=== PATIENT | female | born 2000 | race African-American/Black ===

== ENCOUNTER 2024-12-01 09:19 | Emergency (ER) | payer OTHER, SELFPAY ==
--- NOTE | ~2024-12-01 | XR_ITS ---
EXAMINATION: XR ankle RT min 3V DATE: 12/01/2024 09:48 INDICATION: Lateral malleolar pain at the right ankle TECHNIQUE: Anteroposterior, oblique, mortise, and lateral views of the right ankle were obtained. COMPARISON: None. FINDINGS: Bone alignment is normal. No fracture. Joint spaces are normal. There are couple corticated heterotop ic ossicles medial to the tip the lateral malleolus most likely sequela of chronic anterior talofibul ar ligament sprain. Soft tissue swelling about the lateral malleolus. No definitive ankle joint effus ion. IMPRESSION: 1. Possible recurrent lateral ankle sprain with soft tissue swelling over the lateral malleolus and h eterotopic ossicle suggesting sequela of prior sprain. No acute osseous abnormality. Reviewed, dictated and finalized at location A. IMPRESSION: 1. Possible recurrent lateral ankle sprain with soft tissue swelling over the l ateral malleolus and heterotopic ossicle suggesting sequela of prior sprain. No acute osseous abnormality.
[2024-12-01 09:23] VITALS: BP 122/79; PULSE 76; RESP 20; TEMP 36.7; O2SAT 100
--- NOTE | 2024-12-01 09:42 | ED.LOWEXIN ---
HPI - Extremity Injury (Lower) General Chief Complaint: Extremity Injury, Lower Stated Complaint: R ankle injury at work Time Seen by Provider: 12/01/24 09:26 History of Present Illness HPI Narrative: Patient is a 24-year-old female who presents ER with right ankle pain. 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 She did not fall or strike her head. Has lateral malleolar pain. Mild swelling. She is able to bear weight. No numbness or tingling. Related Data Allergies Allergy/AdvReac Type Severity Reaction Status Date / Time No Known Allergies Allergy Verified 12/01/24 09:26 Review of Systems Constitutional: Constitutional: Reports no additional constitutional complaints Musculoskeletal: Musculoskeletal: Reports no additional musculoskeletal complaints Neurologic: Reports system reviewed and no additional complaints, except as documented PMFSH Past Medical History Medical History (Updated 12/01/24 @ 10:10 by Andres Fernandez MD) Healthy female adult Surgical History Surgical History (Updated 12/01/24 @ 09:43 by Andres Fernandez MD) No history of previous surgery Exam Narrative: GENERAL: Well-appearing, well-nourished, and in no acute distress. HEAD: Normocephalic, atraumatic. HEART: Regular rate and rhythm. Normal peripheral pulses. EXTREMITIES: Normal range of motion. No edema. Tender palpation over the lateral malleolus of the right ankle with minimal swelling. SKIN: Warm, dry, no rash. NEURO: Alert and oriented x3. Course Course Emergency Course: Informed of results. D/c home. Vital Signs Vital signs: Vital Signs Temperature 98.1 F 12/01/24 09:23 Pulse Rate 76 12/01/24 09:23 Respiratory Rate 20 12/01/24 09:23 Blood Pressure 122/79 12/01/24 09:23 Pulse Oximetry 100 12/01/24 09:23 Oxygen Delivery Room Air 12/01/24 09:23 Temperature 98.1 F 12/01/24 09:23 Pulse Rate 76 12/01/24 09:23 Respiratory Rate 20 12/01/24 09:23 Blood Pressure 122/79 12/01/24 09:23 Pulse Oximetry 100 12/01/24 09:23 Oxygen Delivery Room Air 12/01/24 09:23 MDM - Extremity Injury (Lower) Imaging Data Radiologist's impression: ITS Impressions Ankle X-Ray 12/01/24 10:00 IMPRESSION: 1. Possible recurrent lateral ankle sprain with soft tissue swelling over the lateral malleolus and heterotopic ossicle suggesting sequela of prior sprain. No acute osseous abnormality. Discharge Plan Discharge Clinical Impression: Ankle sprain and strain Patient Disposition: Home Condition: Stable Instructions: Ankle Sprain (ED), P.R.I.C.E. Treatment (ED) Additional Instructions: Return to the ER if you have fever over 101F, you suffer new injury, or you have additional concerns. Patient Language: Belgian Prescriptions: New naproxen 375 mg tablet 375 mg PO BID Qty: 14 0RF Follow-up/Referrals: Fransisca,Magaly Kemp APRN [Primary Care Provider] - 1 Week
== END 2024-12-01 10:24 | disposition home or self-care (01) ==
PROVIDERS: Emergency Provider Emergency Medicine; PCP Nurse Practitioner Family
DX: S93.401A Sprain of unspecified ligament of right ankle, initial encounter (principal); S96.911A Strain of unspecified muscle and tendon at ankle and foot level, right foot, initial encounter; X50.9XXA Other and unspecified overexertion or strenuous movements or postures, initial encounter
CPT/HCPCS: 73610; 99283

== ENCOUNTER 2024-12-31 21:58 | Emergency (ER) | payer MEDICAID, SELFPAY ==
--- NOTE | ~2024-12-31 | US_ITS ---
EXAM: PELVIC ULTRASOUND HISTORY: pelvic pain, possible misplaced IUD COMPARISON: None. FINDINGS: UTERUS: 9.7 x 4.1 x 4.5 cm. The uterus is retroverted and retroflexed. Intrauterine device centrally located within the endometrial canal, in good position. RIGHT OVARY: The right ovary is unremarkable in echogenicity and size measuring 2.5 x 2.0 x 2.5 cm. Dopplerable flow is identified. LEFT OVARY: The left ovary is unremarkable in echogenicity and size measuring 2.8 x 1.7 x 2.7 cm Dopplerable flow is identified. Trace free fluid is identified within the pelvis. IMPRESSION: Intrauterine device in good position, as detailed above Reviewed, dictated and finalized at location A.
[2024-12-31 22:00] VITALS: BP 131/71; PULSE 98; RESP 17; TEMP 36.7; O2SAT 100
[2024-12-31 23:12] LABS: BEDSIDEPREGUCG Negative (Negative)
[2024-12-31 23:22] LABS: Add Urine Microscopic? YES; Appearance Urine Clear (Clear); Glucose Urine UA Negative (Negative); Leukocyte Esterase Ur 1+ LEU/UL (Negative); Nitrate Urine Negative (Negative); Non Pathogenic Casts 0-2; Specific Grav Ur 1.023 (1.001-1.035)
--- NOTE | 2025-01-01 00:59 | ED.FEMALEGU ---
HPI - Female Genitourinary General Chief complaint: [employer]IENT [employer]ICE [employer]OCIATE Stated complaint: abd pain, thinks IUD is out of place Time Seen by Provider: 12/31/24 23:23 History of Present Illness HPI Narrative: 24-year-old female otherwise young and healthy presenting to the emergency depart with some deep pelvic pain after having intercourse 4 days ago. She thinks she may have displaced heard IUD. No other traumatic injuries. No bleeding or vaginal discharge. No urinary complaints. No systemic features or symptoms. Was otherwise in her normal state of health. Has not taken anything for symptom control at home. Related Data Allergies Allergy/AdvReac Type Severity Reaction Status Date / Time No Known Allergies Allergy Verified 12/31/24 21:59 Review of Systems Review of Systems: As reviewed above in HPI [facility] Past Medical History Medical History Healthy female adult Surgical History Surgical History No history of previous surgery Exam Narrative: GENERAL: [Well-appearing, well-nourished, and in no acute distress.] HEAD: [Normocephalic, atraumatic.] EYES: [PERRLA and EOMI.] ENT: Nares clear, no rhinorrhea or epistaxis. Mucous membranes moist. NECK: Supple. CHEST: No labored breathing, symmetric chest rise ABDOMEN: [Soft, nondistended], [nontender], [No rigidity or guarding] EXTREMITIES: Normal range of motion. [No edema.] SKIN: Warm, dry, no rash. NEURO: [No focal deficits]. Alert and oriented [x3.] PSYCH: [Normal mood and affect.] Course Vital Signs Vital signs: Vital Signs Temperature 36.7 C 12/31/24 22:00 Pulse Rate 98 12/31/24 22:00 Respiratory Rate 17 12/31/24 22:00 Blood Pressure 131/71 12/31/24 22:00 Pulse Oximetry 100 12/31/24 22:00 Oxygen Delivery Room Air 12/31/24 22:00 Temperature 36.7 C 12/31/24 22:00 Pulse Rate 98 12/31/24 22:00 Respiratory Rate 17 12/31/24 22:00 Blood Pressure 131/71 12/31/24 22:00 Pulse Oximetry 100 12/31/24 22:00 Oxygen Delivery Room Air 12/31/24 22:00 MDM - Female Genitourinary MDM Narrative Medical decision making narrative: 24-year-old female otherwise young and healthy presenting to the emergency depart with some deep pelvic pain after having intercourse 4 days ago. She thinks she may have displaced heard IUD. No other traumatic injuries. No bleeding or vaginal discharge. No urinary complaints. No systemic features or symptoms. Was otherwise in her normal state of health. Has not taken anything for symptom control at home. Ultrasound was ordered to evaluate for any IUD malposition or the other intrauterine/pelvic findings but could be component of some direct traumatic injury from the intercourse. Ultrasound is unremarkable with normal position of IUD. Patient given ibuprofen and safe for discharge with PCP follow-up. Medical Records Attestation: I reviewed the patient's medical records. Lab Data Attestation: I reviewed the patient's lab results. Labs: Lab Results 12/31/24 12/31/24 Range/Units 23:06 23:10 Urine Color Yellow (Yellow) Urine Appearance Clear (Clear) Urine pH 5.5 (5.0-9.0) Ur Specific [place] 1.023 (1.001-1.035) Urine Protein Negative (Negative) mg/dL Urine Glucose (UA) Negative (Negative) mg/dL Urine Ketones 1+ H (Negative) mg/dL Ur Blood (Man) Negative (Negative) Urine Nitrate Negative (Negative) Urine Bilirubin Negative (Negative) Urine Urobilinogen 1.0 (<2.0) mg/dL Leukocyte Esterase Rfl 1+ H (Negative) YOLI/UL Urine RBC 0-2 (0-2) /hpf Urine WBC 6-10 H (0-3) /hpf Ur Squamous Epith Cells Not Reportable Urine Bacteria Trace /hpf Urine Casts 0-2 POC Urine HCG, Qual Negative (Negative) Imaging Data Attestation: I personally reviewed and interpreted this imaging study as follows: My impression: Impressions Transvaginal US 12/31/24 23:52 IMPRESSION: Intrauterine device in good position, as detailed above Discharge Plan Discharge Clinical Impression: Pelvic pain Patient Disposition: Home Condition: Stable Instructions: Antibiotic Form Additional Instructions: Ultrasound is normal without any findings of acute injury. IUD is in place. Likely related to the recent intercourse but no signs of any acute traumatic findings. Ibuprofen up to 800 mg up to 3 times daily for pain control. Return to the ER with any emergent concerns otherwise follow-up with your doctor. Patient Language: Icelandic Prescriptions: No Action naproxen 375 mg tablet 375 mg PO BID Qty: 14 0RF Follow-up/Referrals: Fransisca,Magaly Kemp APRN [Primary Care Provider] - Time of Disposition: 00:59
[2025-01-01] MEDS: IBUPROFEN 400 MG TABLET 800 MG PO (01:09)
== END 2025-01-01 01:13 | disposition home or self-care (01) ==
PROVIDERS: Emergency Provider Student in an Organized Health Care Education/Training Program; PCP Nurse Practitioner Family
DX: R10.2 Pelvic and perineal pain (principal); Z97.5 Presence of (intrauterine) contraceptive device
CPT/HCPCS: 76830; 81001; 81025; 99284; A9270

== ENCOUNTER 2025-01-02 11:48 | Emergency (ER) | payer OTHER, MEDICAID, SELFPAY ==
[2025-01-02 11:58] VITALS: BP 125/80; PULSE 78; RESP 16; TEMP 36.4; O2SAT 99
--- NOTE | 2025-01-02 12:36 | ED.LOWEXIN ---
HPI - Extremity Injury (Lower) General Chief Complaint: Extremity Injury, Lower Stated Complaint: requesting R ankle be wrapped Time Seen by Provider: 01/02/25 11:59 History of Present Illness HPI Narrative: This is a 24-year-old female with no significant past medical history presents the ED for ankle pain. Patient states she was walking when she twisted her right ankle. She has been able to bear weight. Denies numbness, tingling. She still is painful. She is requesting an Lavon wrap at this time. Denies numbness, tingling. Related Data Allergies Allergy/AdvReac Type Severity Reaction Status Date / Time No Known Allergies Allergy Verified 01/02/25 12:00 Review of Systems Review of Systems: Gen.: Denies fevers or chills Eyes: Denies eye pain or visual change ENT: Denies congestion Respiratory: Denies shortness of breath or cough CV: Denies chest pain or palpitations GI: Denies abdominal pain nausea, emesis or diarrhea denies burning, urgency, frequency or hematuria Musculoskeletal: Denies back pain or muscle pain. R ankle pain Neuro: Denies numbness, tingling, weakness or focal weakness Skin: Denies rash Except as documented, all other systems reviewed and negative PMFSH Past Medical History Medical History Healthy female adult Surgical History Surgical History No history of previous surgery Exam Narrative: APPEARANCE: No acute distress, nontoxic, sitting in chair EYES: EOMI HEENT: Normocephalic, atraumatic RESPIRATORY: No respiratory distress CARDIOVASCULAR: Regular rate and rhythm without murmurs rubs or gallops. MUSCULOSKELETAl: Pain to the right lateral maleolus with inversion and plantar flexion of the ankle. No posterior lateral malleolus ttp, no ttp to the fifth metatarsal. NEURO: Awake and alert SKIN:: Warm, dry. No rashes lesions or abrasions PSYCHIATRIC: Normal affect/mood, Course Vital Signs Vital signs: Vital Signs Temperature 97.6 F 01/02/25 11:58 Pulse Rate 78 01/02/25 11:58 Respiratory Rate 16 01/02/25 11:58 Blood Pressure 125/80 01/02/25 11:58 Pulse Oximetry 99 01/02/25 11:58 Temperature 97.6 F 01/02/25 11:58 Pulse Rate 78 01/02/25 11:58 Respiratory Rate 16 01/02/25 11:58 Blood Pressure 125/80 01/02/25 11:58 Pulse Oximetry 99 01/02/25 11:58 MDM - Extremity Injury (Lower) MDM Narrative Medical decision making narrative: 24-year-old female presenting for ankle pain. Does not meet [place] criteria for imaging. Patient is bearing weight without difficulty. The patient likely has an ankle sprain. She will be given an Lavon wrap. She was educated on IV Tylenol use for pain. Educated on rice therapy. Advised follow-up with PCP next week for re-evaluation. Patient agreeable to plan. Given return precautions. Differential Diagnosis Differential diagnosis: Likely ankle sprain and strain and other (Unlikely ankle fracture) Discharge Plan Discharge Clinical Impression: Ankle sprain and strain Patient Disposition: Home Condition: Stable Instructions: Antibiotic Form, Ankle Sprain (ED), P.R.I.C.E. Treatment (ED) Patient Language: Jordanian Prescriptions: No Action naproxen 375 mg tablet 375 mg PO BID Qty: 14 0RF Follow-up/Referrals: Fransisca,Magaly Kemp, STABLE MANAGER [Primary Care Provider] -
== END 2025-01-02 13:12 | disposition home or self-care (01) ==
PROVIDERS: Emergency Provider Student in an Organized Health Care Education/Training Program; PCP Nurse Practitioner Family
DX: S93.401A Sprain of unspecified ligament of right ankle, initial encounter (principal); X50.1XXA Overexertion from prolonged static or awkward postures, initial encounter
CPT/HCPCS: 99282